=== PATIENT | male | born 1980 | race African-American/Black ===

== ENCOUNTER 2016-08-21 08:51 | Inpatient (IN) | payer OTHER ==
[~2016-08-21] VITALS: Ht 193 cm; Wt 78.9 kg
[2016-08-21] VITALS (8 sets, daily range): BP systolic 107–143; BP diastolic 46–87
--- NOTE | ~2016-08-21 | HC ---
[facility] [place] [address] CONSULTATION Name: OLIVERIO ARIZMENDI Room #: 407-P [facility] IN M.R.#: [id number] Admission: 08/21/16 Attend Phys: Zack Nguyễn DO Discharge: Date of : 76 Report #: [id number] THIS REPORT FOR: //name// CC: FAM unknown Zack Nguyễn DATE OF SERVICE: 08/21/2016 REASON FOR CONSULTATION: I was asked to evaluate concerning DKA, leukocytosis and acute renal failure with profound metabolic acidosis. HISTORY OF PRESENT ILLNESS: The patient was a 36-year-old with longstanding diabetes, on insulin at home. Two days ago, he had some sinus congestion, upper respiratory tract infection symptoms followed by nausea, vomiting and inability to keep any fluids down. Awoke this morning, was very weak and presented to the Emergency Room. No purulent sinus drainage. No documented fever. No cough or sputum production. No abdominal pain, back pain or flank pain. No trauma. No skin or soft tissue infection symptoms. Found to be hypoglycemic and have profound metabolic acidosis, leukocytosis and acute renal failure, was hospitalized in intensive care unit and placed on IV fluids. He is into his third liter now. He is on an insulin drip. His oxygen saturations have been stable on room air. His urine output has picked up some and he has put out about a liter in the last several hours. ALLERGIES: None. MEDICATIONS: He was on insulin prior to his admission. Did receive a dose of Zosyn after cultures. PAST MEDICAL HISTORY: Diabetes. FAMILY HISTORY: Noncontributory. 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 No HIV risk factors. REVIEW OF SYSTEMS: Noted above. PHYSICAL EXAMINATION: VITAL SIGNS: He is afebrile, tachycardic, but blood pressure is stable 125/67. GENERAL: He is alert and cooperative. HEENT: He had mild conjunctival injection. Mouth unremarkable other than some gingivitis and dental caries at several teeth. NECK: Supple. LUNGS: Clear. HEART: Tachycardic and regular. [facility] [address] [place] [address] CONSULTATION Name: OLIVERIO ARIZMENDI BRENDA Room #: 407-P [facility] IN M.R.#: [id number] Admission: 08/21/16 Attend Phys: Zack Nguyễn DO Discharge: Date of : 76 Report #: [id number] ABDOMEN: Soft, nontender, no hepatosplenomegaly or mass. EXTREMITIES: Unremarkable. No skin or soft tissue infection or ulcers. Perianal examination was normal. GENITAL: Normal. NEUROLOGIC: Normal. LABORATORY STUDIES: Sodium 139, potassium 6.9, bicarbonate of less than 5, creatinine 2.9. Blood sugar initially 700, last read was 273. Liver function tests normal except for an alkaline phosphatase of 144, lactate was 4. Hemoglobin 14.5, white count 21.7, platelet count 214,000, 71% segs, 4% lymphs. Urinalysis is pending. Blood cultures are pending. Influenza antigen was negative. ABGs on room air showed a pO2 of 87, pCO2 35, pH 7.29. IMPRESSION: A 36-year-old with diabetes ketoacidosis and leukocytosis with profound metabolic acidosis, acute renal failure. The sugar is yet to be identified. Would be concerned about underlying sinus infection. I am awaiting urine studies. I doubt intestinal disease, although he did have nausea and vomiting. I suspect this is more related to his diabetes ketoacidosis. PLAN: Recommend broad antibiotic coverage with Zosyn pending culture results. We will repeat a chest x-ray in a.m. Continue with hydration. We will begin bicarbonate drip along with his insulin drip. I have discussed case with nursing staff and the patient in detail. <ELECTRONICALLY SIGNED> By: Nitin Kelly MD 08/23/16 0847 1726 [id number] Nitin Kelly MD /nt
[2016-08-21] MEDS ORDERED: LEVEMIR SUBQ (08:54)
[2016-08-21] MEDS ORDERED: [UNRECOGNIZED DRUG - OTHER] (08:54)
[2016-08-21 09:03] LABS: HEMATOCRIT 45.2 % (42.0-52.0); HEMOGLOBIN 14.5 gm/dL (14.0-18.0); MCH 29.9 pg (26.0-34.0); MCV 93.3 fL (80.0-100.0); PLATELET COUNT 214 thou/uL (150-400); RBC 4.84 mil/uL (4.50-6.00); RDW 13.6 % (10.5-14.5); WBC 21.7 thou/uL (4.0-11.0)
[2016-08-21 09:04] LABS: MANUAL DIFF YES
[2016-08-21 09:22] LABS: ALBUMIN 4.3 g/dL (3.4-5.0); CALCIUM 9.3 mg/dL (8.5-10.1); CREATININE 3.6 mg/dL (0.6-1.3); TOTAL BILIRUBIN 0.6 mg/dL (<0.1-1.0); TOTAL PROTEIN 8.1 g/dL (6.4-8.2)
[2016-08-21 09:46] LABS: POTASSIUM 6.9 mmol/L (3.5-5.1)
[2016-08-21 10:05] LABS: ABG SAMPLE TYPE VENOUS; BE(vivo) -23.1 mmol/L (-2 to +3); HCO3 6.9 mmol/L (22.0-26.0); O2(CT) 15.5 mL/dL (15.0-23.0); O2Hb VENOUS 81.6 (65.0-85.0); PCO2 VENOUS 28.2 mmHg (41.0-51.0); PO2 VENOUS 61.9 mmHg (35.0-45.0); sO2 VENOUS 78.9 % (65.0-85.0); tCO2 7.8 mmol/L (24.0-30.0)
[2016-08-21 10:07] LABS: LACTATE 3.89 mmol/L (0.5-2.0)
[2016-08-21 10:24] LABS: ABSOLUTE NEUTROPHILS 16.3 thou/uL (1.4-8.2); ANISOCYTOSIS SLIGHT; TOTAL CELL COUNT 100
[2016-08-21 13:33] LABS: ALBUMIN 3.8 g/dL (3.4-5.0); BUN 50 mg/dL (7-18); CALCIUM 8.3 mg/dL (8.5-10.1); CHLORIDE 101 mmol/L (98-107); CREATININE 2.9 mg/dL (0.6-1.3); MAGNESIUM 2.6 mg/dL (1.8-2.4); SODIUM 139 mmol/L (136-145)
[2016-08-21 13:48] LABS: ANION GAP 33 mmol/L (7-16)
[2016-08-21 13:51] LABS: CO2 < 5 mmol/L (21-32); GLUCOSE 705 mg/dL (70-99); POTASSIUM 6.9 mmol/L (3.5-5.1)
[2016-08-21 15:00] LABS: ABG SAMPLE TYPE ARTERIAL; BE(vivo) -8.6 mmol/L (-2 to +3); HCO3 16.9 mmol/L (22.0-26.0); LACTATE 1.67 mmol/L (0.5-2.0); O2(CT) 19.6 mL/dL (15.0-23.0); O2Hb 95.1 % (92.0-98.0); PCO2 35.4 mmHg (35.0-45.0); PO2 87.7 mmHg (80.0-100.0); sO2 95.9 % (92.0-98.0)
[2016-08-21 15:01] LABS: STICK SITE R.RADIAL; pH 7.297 (7.360-7.450)
[2016-08-21 19:13] LABS: ALBUMIN 3.6 g/dL (3.4-5.0); CALCIUM 8.6 mg/dL (8.5-10.1); CREATININE 2.4 mg/dL (0.6-1.3); MAGNESIUM 2.7 mg/dL (1.8-2.4); PHOSPHORUS 1.3 mg/dL (2.5-4.9)
[2016-08-21 21:42] LABS: URINE BILIRUBIN 1+ (Negative); URINE BLOOD 2+ (Negative); URINE COLOR YELLOW; URINE GLUCOSE-RANDOM* NEGATIVE (Negative); URINE KETONES 1+ (Negative); URINE LEUKOCYTES-REFLEX NEGATIVE (Negative); URINE PROTEIN (DIPSTICK) 1+ (Negative); URINE UROBILINOGEN 0.2 E.U./dl (0.2-1.0)
[2016-08-21 21:48] LABS: ICTOTEST (BILI CONFIRMATORY) Positive (Negative)
[2016-08-21 21:54] LABS: CASTS None Seen /LPF (None Seen); CRYSTALS None Seen /LPF (None Seen); SQUAMOUS None Seen /LPF (0-3); URINE RBC None Seen /HPF (0-2); URINE WBC-REFLEX None Seen /HPF (0-5)
[2016-08-22] VITALS (13 sets, daily range): BP systolic 117–155; BP diastolic 66–104
[2016-08-22 00:01] LABS: ALBUMIN 3.6 g/dL (3.4-5.0); CALCIUM 8.9 mg/dL (8.5-10.1); CREATININE 2.1 mg/dL (0.6-1.3); MAGNESIUM 2.7 mg/dL (1.8-2.4); PHOSPHORUS 2.2 mg/dL (2.5-4.9); POTASSIUM 4.1 mmol/L (3.5-5.1)
[2016-08-22 05:26] LABS: ABSOLUTE NEUTROPHILS 9.9 thou/uL (1.4-8.2); EOSINOPHILS 0.2 % (0.0-3.0); HEMATOCRIT 41.4 % (42.0-52.0); HEMOGLOBIN 14.1 gm/dL (14.0-18.0); LYMPHOCYTES 17.8 % (24.0-44.0); MCH 29.5 pg (26.0-34.0); MONOCYTES 8.9 % (1.0-8.0); PLATELET COUNT 196 thou/uL (150-400); POLYS 72.1 % (36.0-66.0); RBC 4.77 mil/uL (4.50-6.00); RDW 13.2 % (10.5-14.5); WBC 13.8 thou/uL (4.0-11.0)
[2016-08-22 05:36] LABS: ALBUMIN 3.6 g/dL (3.4-5.0); CALCIUM 8.9 mg/dL (8.5-10.1); CREATININE 1.9 mg/dL (0.6-1.3); POTASSIUM 3.8 mmol/L (3.5-5.1); TOTAL BILIRUBIN 0.6 mg/dL (<0.1-1.0); TOTAL PROTEIN 7.1 g/dL (6.4-8.2)
[2016-08-22 05:56] LABS: MANUAL DIFF NO; MCV 86.8 fL (80.0-100.0)
[2016-08-22 08:31] LABS: CALCIUM 8.7 mg/dL (8.5-10.1); CREATININE 1.8 mg/dL (0.6-1.3); POTASSIUM 3.9 mmol/L (3.5-5.1)
[2016-08-22 13:58] LABS: CALCIUM 8.3 mg/dL (8.5-10.1); CREATININE 1.8 mg/dL (0.6-1.3); POTASSIUM 3.6 mmol/L (3.5-5.1)
[2016-08-22 23:08] LABS: GLYCOHEMOGLOBIN (HGB A1C) 10.9 % (4.8-5.6)
[2016-08-23 04:50] VITALS: BP 140/97
[2016-08-23 06:39] LABS: HEMATOCRIT 38.9 % (42.0-52.0); HEMOGLOBIN 13.3 gm/dL (14.0-18.0); MCH 30.1 pg (26.0-34.0); MCHC 34.2 g/dL (28.0-37.0); RBC 4.42 mil/uL (4.50-6.00); RDW 13.4 % (10.5-14.5); WBC 6.8 thou/uL (4.0-11.0)
[2016-08-23 06:55] LABS: ALBUMIN 2.9 g/dL (3.4-5.0); CALCIUM 8.2 mg/dL (8.5-10.1); CREATININE 1.5 mg/dL (0.6-1.3); POTASSIUM 3.9 mmol/L (3.5-5.1); TOTAL BILIRUBIN 0.9 mg/dL (<0.1-1.0); TOTAL PROTEIN 5.9 g/dL (6.4-8.2)
[2016-08-23 08:00] VITALS: BP 140/93
[2016-08-23] MEDS ORDERED: IBUPROFEN 400400 M2 PO (10:19)
[2016-08-23] MEDS ORDERED: CYCLOBENZAPRINE5 MG PO (10:19)
[2016-08-23] MEDS ORDERED: HUMALOG100 UNIT/1 SUBQ (10:19)
[2016-08-23 15:40] VITALS: BP 120/91
[2016-08-23 19:35] VITALS: BP 145/101
[2016-08-24 00:40] VITALS: BP 127/78
[2016-08-24 03:13] VITALS: BP 148/98
[2016-08-24 08:02] VITALS: BP 125/85
[2016-08-24 15:57] VITALS: BP 152/93
[2016-08-24 20:00] VITALS: BP 141/96
[2016-08-25 04:00] VITALS: BP 153/98
[2016-08-25 08:28] VITALS: BP 147/97
[2016-08-25 12:01] VITALS: BP 147/97
[2016-08-25 12:22] VITALS: BP 147/97
[2016-08-25 12:36] VITALS: BP 147/97
[2016-08-25 13:56] VITALS: BP 147/97
== END 2016-08-25 13:00 | disposition home or self-care (01) | DRG 638 ==
LOC: ER 08:51 → ICU 09:57 → EROBS 09:57 → 4N 09:57 → ICU 10:46 → 4N 08-22 14:07
PROVIDERS: Emergency Medicine; Family Medicine; Hospitalist; Internal Medicine Endocrinology, Diabetes & Metabolism; Physician Assistant
PROC: 02HV33Z Insertion of Infusion Device into Superior Vena Cava, Percutaneous Approach (ICD-10-PCS; principal; 2016-08-21)
PROC: B548ZZA Ultrasonography of Superior Vena Cava, Guidance (ICD-10-PCS; principal; 2016-08-21)
DX: E10.10 Type 1 diabetes mellitus with ketoacidosis without coma (principal); N17.9 Acute kidney failure, unspecified; E10.649 Type 1 diabetes mellitus with hypoglycemia without coma; D72.829 Elevated white blood cell count, unspecified; M19.90 Unspecified osteoarthritis, unspecified site; F12.90 Cannabis use, unspecified, uncomplicated; I10 Essential (primary) hypertension; E86.0 Dehydration; Z91.14 Patient's other noncompliance with medication regimen; Z79.4 Long term (current) use of insulin; Z79.899 Other long term (current) drug therapy
CPT/HCPCS: 10078; 10790; 27000

== ENCOUNTER 2019-04-21 04:38 | Inpatient (IN) | payer BC, OTHER ==
[~2019-04-21] VITALS: Ht 193 cm; Wt 84.8 kg
[2019-04-21] VITALS (29 sets, daily range): BP systolic 118–151; BP diastolic 66–96
[~2019-04-21 04:38] MED LIST: CYCLOBENZAPRINE5 MG PO; HUMALOG100 UNIT/1 SUBQ; IBUPROFEN 400400 M2 PO; LEVEMIR SUBQ; [UNRECOGNIZED DRUG - OTHER]
[2019-04-21 05:03] LABS: ABSOLUTE NEUTROPHILS 11.1 thou/uL (1.4-8.2); BASOPHILS 0.8 % (0.0-2.0); EOSINOPHILS 0.1 % (0.0-3.0); HEMATOCRIT 45.4 % (42.0-52.0); HEMOGLOBIN 15.3 gm/dL (14.0-18.0); MCH 30.3 pg (26.0-34.0); MCHC 33.7 g/dL (28.0-37.0); MCV 89.9 fL (80.0-100.0); MONOCYTES 4.8 % (1.0-8.0); PLATELET COUNT 209 thou/uL (150-400); POLYS 78.3 % (36.0-66.0); RBC 5.05 mil/uL (4.50-6.00); RDW 13.5 % (10.5-14.5); WBC 14.2 thou/uL (4.0-11.0)
[2019-04-21 05:12] LABS: BE(vivo) -4.6 mmol/L (-2 to +3); HCO3 14.6 mmol/L (22.0-26.0); pH 7.546 (7.360-7.450); sO2 98.7 % (92.0-98.0)
[2019-04-21 05:15] LABS: PCO2 17.2 mmHg (35.0-45.0)
[2019-04-21 05:18] LABS: ALBUMIN 4.5 g/dL (3.4-5.0); CALCIUM 10.3 mg/dL (8.5-10.1); CREATININE 2.1 mg/dL (0.7-1.3); MAGNESIUM 1.7 mg/dL (1.8-2.4); PHOSPHORUS 5.5 mg/dL (2.5-4.9); POTASSIUM 4.5 mmol/L (3.5-5.1); TOTAL BILIRUBIN 1.3 mg/dL (<0.1-1.0); TOTAL PROTEIN 8.5 g/dL (6.4-8.2)
[2019-04-21 05:24] LABS: URINE BILIRUBIN NEGATIVE (Negative); URINE BLOOD 1+ (Negative); URINE CLARITY CLEAR; URINE GLUCOSE-RANDOM* 3+ (Negative); URINE KETONES 2+ (Negative); URINE LEUKOCYTES-REFLEX NEGATIVE (Negative); URINE NITRITE-REFLEX NEGATIVE (Negative); URINE PROTEIN (DIPSTICK) TRACE (Negative); URINE SPECIFIC GRAVITY 1.015 (1.005-1.035); URINE UROBILINOGEN 0.2 E.U./dl (0.2-1.0)
[2019-04-21 05:27] LABS: URINE COLOR YELLOW
[2019-04-21 05:36] LABS: BACTERIA-REFLEX None Seen /HPF (None Seen); CASTS None Seen /LPF (None Seen); CRYSTALS None Seen /LPF (None Seen); MUCUS None Seen strn/LPF (None Seen); SQUAMOUS 0-3 Few /LPF (0-3); URINE RBC 0-2 Rare /HPF (0-2); URINE WBC-REFLEX None Seen /HPF (0-5)
--- NOTE | 2019-04-21 07:00 | NUR ---
ASSUMMED CARE AFTER RECEIVING REPORT FROM JULIA HUSSEIN FROM THE COMMISSIONS COORDINATOR. 39 YO MALED ADMITTED TO ICU ROOM 243 FROM ED WITH DKA AND INSULIN DRIP INFUSING AT 0635. PATIENT ATTACHED TO MONITORS AND ASSESSMENT COMPLETED. ALBERTINAN EDUCATED ON POC AND REASSURANCE GIVEN.
--- NOTE | 2019-04-21 07:36 | EKG ---
[address] [place] [address] ELECTROCARDIOGRAM REPORT Name: UGOOLIVERIO Room #: 243-P ADM IN M.R.#: [id number] Admission: 04/21/19 Attend Phys: Paddy Saeed MD Discharge: Date of : 76 Report #: [id number] THIS REPORT FOR: //name// 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 : 1980 Requested By: Iliana Zapata Order Number: [id number] MD: Yves Mesa Measurements Intervals [place] Rate: 97 P: 79 RI: 162 QRS: 67 QRSD: 94 T: 78 QT: 368 QTc: 468 Interpretive Statements Sinus rhythm Right ventricular conduction delay ST elev, probable normal early repol pattern No previous ECG available for comparison Electronically Signed On 04-21-2019 7:36:38 VIDEO MANAGER by Yves Mesa [email or web address] <ELECTRONICALLY SIGNED> By: Yves Mesa MD, [facility] 04/21/19 0736 0506 0506 Yves Mesa MD, FACC /EPI
[2019-04-21] MEDS ORDERED: SILDENAFIL CIT100 MG PO (09:34)
[2019-04-21] MEDS ORDERED: APIDRA SOL100 UNIT/1 (09:36)
[2019-04-21 10:31] LABS: ALBUMIN 3.8 g/dL (3.4-5.0); CREATININE 1.8 mg/dL (0.7-1.3); MAGNESIUM 2.4 mg/dL (1.8-2.4); PHOSPHORUS 3.4 mg/dL (2.5-4.9); POTASSIUM 4.1 mmol/L (3.5-5.1)
--- NOTE | 2019-04-21 13:39 | NUR ---
PATIENT UP IN THE CHAIR, WANTING TO STRETCH HIS BACK OUT. TOLERATING PO CLEAR LIQUIDS WITHOUT NAUSEA OR EMESIS. ANION GAP CLOSED AND INSULIN DRIP TAPPERED TO KEEP BLOOD GLUCOSE 150 TO 200. MONITOR SHOWING NSR.
--- NOTE | 2019-04-21 15:07 | NUR ---
INITIAL ASSESSMENT: Received consult for discharge planning. GWEN reviewed chart and spoke with nursing and attending physician. Pt was admitted from home due to nausea/vomiting/DKA. Pt with hx of type 1 DM. Endocrinology consulted. Pt currently in ICU. GWEN met with pt and s/o at bedside. Introduced role of SW. Pt is alert/orientated x 4. Pt and s/o states that they live at home. Prior to admission, pt was independent with ADLs. No use of DME. Pt states he has insurance and has been filling his scripts for insulin. Pt does not have a PCP. SW offered to provide info on [facility] providers. Pt declines offer and states he will find one. Plan is for pt to discharge home when medically stable. GWEN is following to assist as needed with discharge planning.
[2019-04-21 19:59] LABS: CALCIUM 8.8 mg/dL (8.5-10.1); CREATININE 1.5 mg/dL (0.7-1.3); POTASSIUM 4.6 mmol/L (3.5-5.1)
[2019-04-21 20:04] LABS: ALBUMIN 3.5 g/dL (3.4-5.0); MAGNESIUM 2.3 mg/dL (1.8-2.4); PHOSPHORUS 1.4 mg/dL (2.5-4.9)
[2019-04-21 23:08] LABS: GLYCOHEMOGLOBIN (HGB A1C) 10.1 % (4.8-5.6)
[2019-04-22] VITALS (17 sets, daily range): BP systolic 123–153; BP diastolic 78–98
[2019-04-22 05:44] LABS: CALCIUM 8.3 mg/dL (8.5-10.1); CREATININE 1.4 mg/dL (0.7-1.3); MAGNESIUM 1.9 mg/dL (1.8-2.4); PHOSPHORUS 2.7 mg/dL (2.5-4.9); POTASSIUM 4.2 mmol/L (3.5-5.1)
[2019-04-22 06:41] LABS: ALBUMIN 3.3 g/dL (3.4-5.0)
--- NOTE | 2019-04-22 08:11 | HC ---
[facility] [place] [address] CONSULTATION Name: OLIVERIO ARIZMENDI Room #: 243-P [facility] IN M.R.#: [id number] Admission: 04/21/19 Attend Phys: Vira Hawkins MD Discharge: Date of : 76 Report #: [id number] THIS REPORT FOR: //name// CC: Vira Hawkins FAM physician/PCP DATE OF SERVICE: 04/21/2019 ENDOCRINE CONSULTATION CONSULTING PHYSICIAN: Dr. Saeed. REASON FOR CONSULTATION: DKA, uncontrolled type 1 diabetes mellitus. HISTORY OF PRESENT ILLNESS: This is a 39-year-old male patient whose medical background is significant for type 1 diabetes mellitus diagnosed over 22 years ago. The patient notes that he is maintained on a regimen of Levemir insulin 20 units b.i.d. in addition to Apidra insulin 14 units b.i.d. He acknowledges that he does not check his blood sugars nearly at all and recalls that his hemoglobin A1c, when visiting his primary care physician 2 months ago, was at about 10. He hardly has issues with hypoglycemia, but does report occasional occurrence of mild symptoms that are readily responsive to food intake. He maintains that he has been compliant with insulin intake and denies having had extended periods without insulin intake. The patient notes that he did well throughout Sunday only to wake up Sunday with progressive issues of abdominal discomfort, nausea, vomiting, generalized weakness and diarrhea. This was not preceded by any form of intercurrent illness that he recalls. The patient presented to the ER where he was found to be in diabetic ketoacidosis and was admitted for further care and monitoring. The patient's background is negative for diabetic retinopathy, diabetic neuropathy or kidney disease. He is not known to have hypertension or hyperlipidemia. REVIEW OF SYSTEMS: CONSTITUTIONAL: Weakness, tiredness, but no fever, chills or weight changes. HEENT: Negative for sore throat, sinus pain, ear drainage. PULMONARY: Negative for shortness of breath, cough or hemoptysis. CARDIAC: Negative for chest pain, noted for occasional palpitations, lightheadedness, no leg swelling. GASTROINTESTINAL: Noted for abdominal discomfort, nausea, vomiting. No hematemesis. NEUROLOGY: Negative for loss of consciousness, seizure activity or peripheral neuropathy issues. PSYCHIATRIC: Negative for depression, schizophrenia, mood swings. [address] [address] CONSULTATION Name: OLIVERIO ARIZMENDI BRENDA Room #: [address] [place] [address] IN .R.#: [id number] Admission: 04/21/19 Attend Phys: Vira Hawkins MD Discharge: Date of : 76 Report #: [id number] SKIN: Negative for rash, ulceration or other major changes. Otherwise, his review of systems noncontributory other than those mentioned in HPI. PAST MEDICAL HISTORY: Type 1 diabetes mellitus. OUTPATIENT MEDICATIONS: Levemir insulin 20 units b.i.d., Apidra insulin 14 units b.i.d. ALLERGIES: No known drug allergies. FAMILY HISTORY: Noncontributory. SOCIAL HISTORY: The patient has 3 children. Smokes marijuana occasionally, but denies use of tobacco, alcohol or illicit drugs. PHYSICAL EXAMINATION: GENERAL: Pleasant -Burmese male. The patient appears comfortable, although a bit tired, not in apparent pain or distress. VITAL SIGNS: Blood pressure is 134/74 mmHg, heart rate is 104 beats per minute, respirations 12 per minute, temperature of 36.4 degrees. HEENT: Anicteric sclerae. Intact extraocular motions. NECK: Supple, without JVD, carotid bruits or lymphadenopathy. I do not appreciate thyromegaly. CHEST: Clear to auscultation with good air entry bilaterally. No wheezes or crackles with resonant percussion noted over both lung hol[place]. HEART: Regular rate and rhythm without murmurs or gallops. ABDOMEN: Soft and lax without tenderness or organomegaly, has active bowel sounds. EXTREMITIES: Lower extremity exam is negative for ankle edema. The patient has good pedal pulses bilaterally. NEUROLOGIC: Awake, alert and oriented to time, place and person. The remainder of his examination is nonfocal. PSYCHIATRIC: Pleasant, interactive, appropriate and answers my questions. Normal mood and affect. SKIN: No rash, discoloration, ulceration or other major abnormalities. LABORATORY DATA: Blood glucose since arrival has ranged from 190-487 mg/dL, sodium 137, potassium 4.5, chloride 95, CO2 of 20, anion gap 22, BUN 36, creatinine 2.1, glucose 529, AST 20, lipase 53, total bilirubin 1.3, calcium 10.3, phosphorus 5.5, magnesium 1.7, alkaline phosphatase is 136, ALT 20, total protein 8.5, albumin 4.5, EGFR 42. Lactic acid 1.8. White blood count 14.2, hemoglobin 15.3, hematocrit 45.4, platelets 209. TSH that is old. Hemoglobin A1c from 08/2016 was 10.9. A fructosamine from 08/2016 was also elevated at 619. [address] [address] CONSULTATION Name: OLIVERIO ARIZMENDI Room #: 243-P ADM IN M.R.#: [id number] Admission: 04/21/19 Attend Phys: Vira Hawkins MD Discharge: Date of : 76 Report #: [id number] ASSESSMENT AND PLAN: 1. Diabetic ketoacidosis. The patient presents in diabetic ketoacidosis as per the metabolic abnormalities detected on his admission workup. The patient is currently in the ICU where he will be managed with intravenous fluid resuscitation as well as intravenous insulin to be utilized as per the DKA protocol. Electrolytes will be monitored frequently. Blood glucose will glucose will be monitored hourly. I plan is to maintain these measures for at least 24 hours to ensure the full resolution of his metabolic abnormalities before we consider switching him back to subcutaneous insulin therapy. 2. Type 1 diabetes mellitus. Uncontrolled as per his reports of historic hemoglobin A1c. Furthermore, there is added barrier of lacking any blood glucose data. The patient was counseled extensively about the need for routine blood glucose monitoring and about the need to pursue and achieve better glycemic control so as to prevent future diabetic complications which he seems to understand well. I will obtain a hemoglobin A1c to obtain an understanding of his up-to-date glycemic state over the past few months. The details of his subcutaneous insulin regimen will be figured out when his insulin needs have stabilized in a more stable condition going forward. 3. Hypercalcemia. This is slight at 10.3 mg/dL and is likely due to the ongoing electrolyte and fluid shifts. I will reevaluate that once the patient has stabilized. I certainly appreciate this consultation by Dr. Saeed. <ELECTRONICALLY SIGNED> By: Reggie Valentin MD 04/22/19 0811 0927 1342 Reggie Valentin MD /ira
--- NOTE | 2019-04-22 10:46 | NUR ---
PT STARTED ON LONG ACTING INSULIN. ACCUCHECKS CHANGED TO ACHS. WILL INITIATE SLIDING SCALE INSULIN FOR NOON MEAL. OKAY TO TRANSITION TO CARB CONTROLLED DIET. WILL TRANSISITON OFF INSULIN GTT AND IV FLUIDS PER PHYSICIANS ORDERS. PLAN TO TRANSFER PATIENT TO MED/SURG UNIT THIS AFTERNOON.
--- NOTE | 2019-04-22 15:13 | NUR ---
pt off insulin gtt. tolerating meals. sliding scale insulin given. d/c iv fluids. will transfer to room 440. called report to nurse rajani
--- NOTE | 2019-04-22 19:27 | NUR ---
PATIENT TRANSFERRED FROM ICU, REPORT FROM NARESH/RNPATRIA TOOK REPORT. PATIENT ALERT AND ORIENTED X 4. UP AD [facility]. BLOOD SUGAR MONITORING ORDERED, BLOOD SUGAR 65 AT 1725, INSULIN NOT GIVEN. PATIENT HAS 2 IV'S LEFT FOREARM AND AC/SL. PATIENT USES URINAL, TOOK SHOWER WHEN HE ARRIVED ON THE UNIT. POSSIBLE DISCHARGE TOMORROW, NEEDS TO SEE ENDOCRINE IN REGARD TO BLOOD SUGAR MANAGEMENT AT HOME. WILL CONTINUE TO MONITOR.
--- NOTE | 2019-04-23 00:59 | NUR ---
ASSUMED PATIENT CARE AT 2100. ASSESSMENT CHARTED. PATIENT IS A&OX4. VSS. PATIENT VOICES A HEADACHE AT A PAIN SCALE 5/10. PRN TYLENOL GIVEN. PATIENT STATES HE HAS HAD A HISTORY OF HEADACHES IN THE PAST AND THEY MAY BE EXACERBATED BY STRESS. PATIENT IS UP INDEPENDENTLY BUT CALLS FOR HELP IF NEEDED. SINCE PATIENT IS AMBULATORY PATIENT WILL NOT BE USING SCD'S. CBC AND CMP LABS ARE ORDERED. PATIENT DENIES ANY OTHER NEEDS AT THIS TIME. WILL CONTINUE TO MONITOR AND FOLLOW PLAN OF CARE.
[2019-04-23 05:49] LABS: ABSOLUTE NEUTROPHILS 2.7 thou/uL (1.4-8.2); BASOPHILS 0.8 % (0.0-2.0); EOSINOPHILS 2.8 % (0.0-3.0); HEMATOCRIT 41.7 % (42.0-52.0); HEMOGLOBIN 13.9 gm/dL (14.0-18.0); LYMPHOCYTES 44.1 % (24.0-44.0); MCH 30.5 pg (26.0-34.0); MCHC 33.4 g/dL (28.0-37.0); MCV 91.3 fL (80.0-100.0); MONOCYTES 7.2 % (1.0-8.0); PLATELET COUNT 156 thou/uL (150-400); POLYS 45.1 % (36.0-66.0); RBC 4.56 mil/uL (4.50-6.00); RDW 13.4 % (10.5-14.5); WBC 5.9 thou/uL (4.0-11.0)
[2019-04-23 06:09] LABS: ALBUMIN 3.4 g/dL (3.4-5.0); CALCIUM 8.3 mg/dL (8.5-10.1); CREATININE 1.3 mg/dL (0.7-1.3); POTASSIUM 4.4 mmol/L (3.5-5.1); TOTAL BILIRUBIN 1.1 mg/dL (<0.1-1.0); TOTAL PROTEIN 6.6 g/dL (6.4-8.2)
[2019-04-23 07:44] VITALS: BP 131/68
[2019-04-23] MEDS ORDERED: LANTUS SUBQ ×2 (09:19→12:53)
[2019-04-23] MEDS ORDERED: HUMALOG100 UNIT/1 SUBQ ×3 (09:19→12:53)
[2019-04-23] MEDS ORDERED: ONDANSETRON HCL4 M2 PO (12:53)
[2019-04-23] MEDS ORDERED: IMITREX100 MG PO (12:53)
[2019-04-23] MEDS ORDERED: PEPCID20 MG PO (12:53)
[2019-04-23] MEDS ORDERED: BUTALB-ACETAMI1 EACH PO (12:53)
[2019-04-23 14:14] VITALS: BP 131/68
--- NOTE | 2019-04-23 14:56 | NUR ---
ASSUMED CARE OF PATIENT AT 0715, PATIENT ALERT AND ORIENTED X 4. PATIENT UP AD [facility]. PATIENT C/O HEADACHE, THIS RN NOTIFIED DR TAO. DR TAO HERE TO SEE THE PATIENT, NEW ORDER FOR TORADOL 15MG IV X 1 RECEIVED. PATIENT WILL DISCHARGE TO HOME PER DR TAO. PATIENT HAS 2 IV'S LEFT FOREARM AND LEFT AC, BOTH PATENT. NIGHTSHIFT NURSE PER PROTOCOL STARTED NS AT 100CC/HR DUE TO SODIUM LEVEL 135. DISCHARGE PRDER IN COMPUTER, PATIENT STATES HE FEELS BLOOD SUGAR LOW, BLOOD SUGAR CHECKED 37, IV'S HAVE BEEN REMOVED, PATIENT GIVEN APPLE JUICE AND GRAHAN CRACKERS, WILL RECHECK, THIS RN NOTIFIED DR TAO, SHE STATES TO STAY FOR 2 HOURS UNTIL BLOOD SUGAR STABLE. THIS RN ALSO NOTIFIED DR. MARTINEZ PER DR TAO'S ORDER OF ADJUSTING INSULIN DOSES. DR TAO THIS CALLED THIS RN AND STATES SHE JUST SPOKE TO DR MARTINEZ, AND SHE WILL WRITE NEW ORDERS FOR INSULIN DOSES. WILL AWAIT PATIENT'S BLOOD SUGAR TO BE STABLE BEFORE DISCHARGE.
[2019-04-23 15:20] VITALS: BP 143/100
== END 2019-04-23 18:26 | disposition home or self-care (01) | DRG 638 ==
LOC: ER 04:38 → EROBS 05:39 → ICU 05:39 → 4S 04-22 15:46
PROVIDERS: Emergency Medicine Emergency Medical Services; Internal Medicine; Nurse Practitioner Acute Care; ADMIT Hospitalist
DX: E10.10 Type 1 diabetes mellitus with ketoacidosis without coma (principal); N17.9 Acute kidney failure, unspecified; E83.52 Hypercalcemia; N18.9 Chronic kidney disease, unspecified; E83.42 Hypomagnesemia; G43.909 Migraine, unspecified, not intractable, without status migrainosus; Z79.4 Long term (current) use of insulin; Z28.21 Immunization not carried out because of patient refusal
CPT/HCPCS: 10078; 10102

== ENCOUNTER 2021-02-15 07:35 | Emergency (ER) | payer OTHER, BC ==
[~2021-02-15] VITALS: Ht 193 cm; Wt 88.5 kg
[~2021-02-15 07:35] MED LIST changes: +APIDRA SOL100 UNIT/1; +BUTALB-ACETAMI1 EACH PO; +IMITREX100 MG PO; +LANTUS SUBQ; +ONDANSETRON HCL4 M2 PO; +PEPCID20 MG PO; +SILDENAFIL CIT100 MG PO
[2021-02-15 08:32] LABS: HEMATOCRIT 47.4 % (42.0-52.0)
[2021-02-15 08:33] LABS: ABSOLUTE NEUTROPHILS 1.2 thou/uL (1.4-8.2); EOSINOPHILS 0.5 % (0.0-3.0); HEMOGLOBIN 15.8 gm/dL (14.0-18.0); LYMPHOCYTES 51.7 % (24.0-44.0); MCH 30.3 pg (26.0-34.0); MCHC 33.5 g/dL (28.0-37.0); MCV 90.6 fL (80.0-100.0); MONOCYTES 14.5 % (1.0-8.0); PLATELET COUNT 120 thou/uL (150-400); POLYS 32.3 % (36.0-66.0); RBC 5.23 mil/uL (4.50-6.00); RDW 13.9 % (10.5-14.5); WBC 3.9 thou/uL (4.0-11.0)
--- NOTE | 2021-02-15 08:52 | EKG ---
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 : 1980 Requested By: Cesar Mast Order Number: [id number] MD: Yves Mesa Measurements Intervals [place] Rate: 94 P: 75 NE: 132 QRS: 52 QRSD: 93 T: 69 QT: 359 QTc: 449 Interpretive Statements Sinus rhythm Consider right atrial enlargement RSR' in V1 or V2, probably normal variant ST elev, probable normal early repol pattern Compared to ECG 04/21/2019 05:06:12 No significant change was found Electronically Signed On 02-15-2021 8:52:08 CDT by Yves Mesa [email or web address] <ELECTRONICALLY SIGNED> By: Yves Mesa MD, [facility] 02/15/21 0852 0759 0759 Yves Mesa MD, [facility] /EPI
[2021-02-15 08:57] LABS: CALCIUM 9.3 mg/dL (8.5-10.1); CREATININE 1.5 mg/dL (0.7-1.3); POTASSIUM 4.5 mmol/L (3.5-5.1)
[2021-02-15 09:11] LABS: ALBUMIN 3.9 g/dL (3.4-5.0); TOTAL BILIRUBIN 0.8 mg/dL (0.2-1.0); TOTAL PROTEIN 7.9 g/dL (6.4-8.2)
[2021-02-15 10:05] LABS: URINE BLOOD TRACE (Negative); URINE CLARITY CLEAR; URINE COLOR YELLOW; URINE GLUCOSE-RANDOM* NEGATIVE (Negative); URINE KETONES 3+ (Negative); URINE LEUKOCYTES-REFLEX NEGATIVE (Negative); URINE NITRITE-REFLEX NEGATIVE (Negative); URINE PROTEIN (DIPSTICK) 2+ (Negative)
[2021-02-15 10:08] LABS: ICTOTEST (BILI CONFIRMATORY) Negative (Negative); URINE BILIRUBIN NEGATIVE (Negative)
[2021-02-15 10:09] LABS: URINE REDUCING SUBSTANCE NEGATIVE
[2021-02-15] MEDS ORDERED: ZOFRAN ODT4 MG PO (10:24)
[2021-02-15] MEDS ORDERED: VALIUM2 MG PO (10:24)
[2021-02-15 10:30] VITALS: BP 119/77
[2021-02-15 10:34] LABS: BACTERIA-REFLEX 1-9 Few /HPF (None Seen); CASTS None Seen /LPF (None Seen); CRYSTALS None Seen /LPF (None Seen); SQUAMOUS None Seen /LPF (0-3); URINE RBC 1-2 Rare /HPF (NONE SEEN); URINE WBC-REFLEX 0-5 Rare /HPF (0-5)
== END 2021-02-15 10:30 | disposition home or self-care (01) ==
LOC: ER 07:35
PROVIDERS: Emergency Medicine
DX: U07.1 COVID-19 (principal); M54.5 Low back pain; E86.0 Dehydration; E10.9 Type 1 diabetes mellitus without complications; Z79.4 Long term (current) use of insulin; Z79.891 Long term (current) use of opiate analgesic; Z79.899 Other long term (current) drug therapy; Z79.51 Long term (current) use of inhaled steroids; F12.90 Cannabis use, unspecified, uncomplicated